=== PATIENT | male | born 2000 | race Caucasian/White ===

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

== ENCOUNTER 2020-06-21 16:31 | Emergency (ER) | payer OTHER ==
[2020-06-21] MEDS ORDERED: NAPROXEN 250 MG TAB ONE (17:30)
[2020-06-21] MEDS ORDERED: NAPROXEN 250 MG TAB As Ordered ONE (17:30)
== END 2020-06-21 17:35 | disposition home or self-care (01) ==
LOC: M ED 16:31
DX: R07.89 Other chest pain (principal)

== ENCOUNTER → 2020-08-13 | Outpatient (REF) | payer OTHER | LOC: M LAB REF 17:19 | PROVIDERS: ATTEND Pediatrics | DX: Z00.00 Encounter for general adult medical examination without abnormal findings (principal) ==

== ENCOUNTER → 2020-08-19 | Outpatient (CLI) | payer OTHER ==
[2020-08-19 10:00] LABS: BASO % 0.3 % (0.0-1.0); EOS # 0.1 10^3/uL (0.0-0.5); EOS % 1.3 % (0.0-3.0); HEMATOCRIT 37.9 % (42.0-52.0); HEMOGLOBIN 12.6 g/dl (13.5-17.5); LYMPH # 1.5 10^3/uL (1.5-5.0); LYMPH % 19.6 % (24.0-44.0); MEAN CORPUSCULAR HEMOGLOBIN 30.7 pg (27.0-33.0); MEAN CORPUSCULAR HGB CONC 33.2 g/dl (32.0-36.5); MEAN CORPUSCULAR VOLUME 92.2 fl (80.0-96.0); MONO # 0.7 10^3/uL (0.0-0.8); MONO % 9.2 % (0.0-5.0); NEUTROPHILS # 5.4 10^3/uL (1.5-8.5); NEUTROPHILS % 69.2 % (36.0-66.0); PLATELET COUNT, AUTOMATED 293 10^3/uL (150-450); RED BLOOD COUNT 4.11 10^6/uL (4.30-6.10); WHITE BLOOD COUNT 7.7 10^3/uL (4.0-10.0)
[2020-08-19 10:28] LABS: ALBUMIN 3.3 GM/DL (3.2-5.2); ALT/SGPT 30 U/L (12-78); BILIRUBIN,TOTAL 0.4 MG/DL (0.2-1.0); BLOOD UREA NITROGEN 13 MG/DL (7-18); CALCIUM LEVEL 8.9 MG/DL (8.5-10.1); CARBON DIOXIDE LEVEL 28 MEQ/L (21-32); CHLORIDE LEVEL 107 MEQ/L (98-107); CHOLESTEROL LEVEL 155 MG/DL (<200); CREATININE FOR GFR 0.77 MG/DL (0.70-1.30); FREE T4 1.06 NG/DL (0.78-1.33); GLUCOSE, FASTING 98 MG/DL (70-100); HDL CHOLESTEROL 54 MG/DL (>40); LDL CHOLESTEROL 92 MG/DL (<100); NON-HDL-C 101 MG/DL; POTASSIUM SERUM 4.4 MEQ/L (3.5-5.1); SODIUM LEVEL 140 MEQ/L (136-145); TOTAL PROTEIN 6.3 GM/DL (6.4-8.2); TRIGLYCERIDES LEVEL 47 MG/DL (<150)
--- NOTE | 2020-08-19 20:54 | ECGEPIP ---
[facility] Test Date: 2020-08-19 Pat Name: SAMUEL HALEY Department: Room: - Gender: Male Doubler Helper: : 2000 Requested By: SREE Brown Order Number: [id number] Reading MD: Charo Sutton Measurements Intervals [place] Rate: 66 P: 45 RI: 139 QRS: 67 QRSD: 93 T: 50 QT: 371 QTc: 391 Interpretive Statements SINUS RHYTHM WITH SINUS ARRHYTHMIA NO PRIOR Electronically Signed on 08-19-2020 20:54:41 EDT by Charo Sutton
--- NOTE | 2020-08-22 07:55 | ECHO ---
DATE OF PROCEDURE: 08/19/2020 Age: 20 Gender: Male Height: 187 cm Weight: 95 kg REFERRING PHYSICIAN: Dr. Martha Mejia INDICATION: Chest pain. MEASUREMENTS: IVS 1.0 LV 5.2 LVPW 1.0 LA 3.6 Aorta 3.2 IVC 2.2 Mitral E wave velocity 114, A wave 50 E prime septal 11.3 E prime lateral 17.0 FINDINGS: The study is of adequate technical quality, even though parasternal views were limited. The patient is in sinus rhythm. Normal LV size with normal LV systolic function. Estimated left ventricular ejection fraction (LVEF) 60 to 65%. Right ventricle is also normal size and systolic function. Both atria appear normal. Aortic, mitral and tricuspid valves appear normal. Pulmonic valve was not well visualized. No pericardial effusion is present. Inferior vena cava is dilated, but collapses in inspiration suggestive of mild elevation of central venous pressure. The aortic root and aortic arch appear normal. Abdominal aorta was not well seen. Doppler interrogation reveals competent aortic valve. There is trace mitral insufficiency. There is no significant tricuspid insufficiency. Mitral inflow pattern and tissue Doppler imaging of mitral annulus reveal normal diastolic function. CONCLUSIONS: 1. Study is of acceptable technical quality. The patient is in sinus rhythm. 2. Normal LV size preserved LV systolic and diastolic function. 3. No significant valvular disease. 4. Possibly mildly elevated central venous pressure. 5. Unable to estimate pulmonary artery pressure, but no signs suggest pulmonary hypertension. COMMENTS: No findings to explain chest pain. MTDD
--- NOTE | 2020-08-22 07:57 | REP ---
BILATERAL RIB SERIES: 5-VIEWS INCLUDING PA CHEST HISTORY: Chest pain. FINDINGS: PA chest radiographs is normal. No infiltrate is seen. There is no evidence of pneumothorax or hydrothorax. Mediastinum is not widened. Heart size is normal. Multiple views of the right and left rib cage demonstrate no evidence of rib fracture or bony destructive lesion. IMPRESSION: Negative rib radiographs. MTDD
== END ==
LOC: M CARPUL 08:44
PROVIDERS: ATTEND Pediatrics
DX: R07.89 Other chest pain (principal)

== ENCOUNTER 2020-11-12 19:08 | Emergency (ER) | payer OTHER ==
[~2020-11-12] VITALS: Ht 188 cm; Wt 99.3 kg
[2020-11-12 19:09] VITALS: BP 134/60
[2020-11-12] MEDS ORDERED: NS 1,000 ML IV ONE (20:15)
[2020-11-12] MEDS ORDERED: CLINDAMYCIN 600 MG in IV 1 EA IV ONE (20:30)
[2020-11-12 20:46] LABS: BASO % 0.3 % (0.0-1.0); EOS # 0.1 10^3/uL (0.0-0.5); EOS % 0.8 % (0.0-3.0); HEMATOCRIT 42.6 % (42.0-52.0); HEMOGLOBIN 13.9 g/dl (13.5-17.5); LYMPH # 2.6 10^3/uL (1.5-5.0); LYMPH % 21.9 % (24.0-44.0); MEAN CORPUSCULAR HEMOGLOBIN 29.8 pg (27.0-33.0); MEAN CORPUSCULAR HGB CONC 32.6 g/dl (32.0-36.5); MEAN CORPUSCULAR VOLUME 91.4 fl (80.0-96.0); MONO # 1.1 10^3/uL (0.0-0.8); NEUTROPHILS % 67.7 % (36.0-66.0); PLATELET COUNT, AUTOMATED 264 10^3/uL (150-450); RED BLOOD COUNT 4.66 10^6/uL (4.30-6.10); WHITE BLOOD COUNT 11.7 10^3/uL (4.0-10.0)
[2020-11-12] MEDS ORDERED: BOOSTRIX/ADACEL VACCINE (DIPHTH/PERTUSS/ACELL/TETANUS) 0.5ML SYR IM ONE (21:00)
[2020-11-12 21:05] LABS: ERYTHROCYTE SEDIMENTATION RATE 3 mm/hr (0-15)
[2020-11-12 21:25] LABS: BLOOD UREA NITROGEN 14 MG/DL (7-18); C REACTIVE PROTEIN QUANTITATIV 0.86 MG/DL (0.00-0.30); CALCIUM LEVEL 8.9 MG/DL (8.5-10.1); CARBON DIOXIDE LEVEL 30 MEQ/L (21-32); CHLORIDE LEVEL 105 MEQ/L (98-107); CREATININE FOR GFR 0.86 MG/DL (0.70-1.30); GLUCOSE, FASTING 104 MG/DL (70-100); POTASSIUM SERUM 3.8 MEQ/L (3.5-5.1); SODIUM LEVEL 140 MEQ/L (136-145)
--- NOTE | 2020-11-12 21:53 | REPVR ---
PROCEDURE INFORMATION: Exam: XR Right Finger(s) Exam date and time: 11/12/2020 8:30 PM Age: 20 years old Clinical indication: Pain; Finger(s); Right; Additional info: Injury to index finger now w/ swelling, warmth R/O fb TECHNIQUE: Imaging protocol: XR Right fingers. Views: Minimum 2 views. COMPARISON: CR WRIST COMPLETE 03/06/2019 3:10 PM FINDINGS: Bones/joints: No acute fracture or dislocation. Joint spaces are unremarkable. Soft tissues: Unremarkable. No radiopaque foreign body. IMPRESSION: No acute findings. Electronically signed by: Horace Ferris On 11/12/2020 21:54:08 PM
[2020-11-12] MEDS ORDERED: DOXY100C37 PO (22:09)
== END 2020-11-12 22:15 | disposition home or self-care (01) ==
LOC: M ED 19:08
DX: S61.230A Puncture wound without foreign body of right index finger without damage to nail, initial encounter (principal); L03.011 Cellulitis of right finger; I89.1 Lymphangitis; W27.8XXA Contact with other nonpowered hand tool, initial encounter; Y92.89 Other specified places as the place of occurrence of the external cause; Y93.9 Activity, unspecified; Y99.0 Civilian activity done for income or pay

== ENCOUNTER → 2022-11-19 | Outpatient (REF) | payer BC, OTHER ==
[~2022-11-19] MED LIST: DOXY-443 PO
[2022-11-19 18:08] LABS: RSV AMPLIFICATION NEGATIVE (NEGATIVE)
== END ==
LOC: M LAB REF 16:28
PROVIDERS: ATTEND Physician Assistant
DX: R50.9 Fever, unspecified (principal)